=== PATIENT | male | born 1970 | race Caucasian/White ===

== ENCOUNTER 2016-07-25 11:47 | Emergency (ER) | payer OTHER ==
[~2016-07-25] VITALS: Ht 193 cm; Wt 136.1 kg
--- NOTE | ~2016-07-25 | EKG ---
[place] [address] [address] [facility] [place] [address] ELECTROCARDIOGRAM REPORT Name: LEELEE BAEZA [id number] Admission: 07/25/16 Attend Phys: Discharge: 07/25/16 Date of : 66 Report #: [id number] THIS REPORT FOR: //name// [facility] ED Test Date: 2016-07-25 Test Time: 12:04:48 Pat Name: LEELEE BAEZA Department: Room: 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
--- NOTE | ~2016-07-25 | EKG ---
[facility] [place] [address] ELECTROCARDIOGRAM REPORT Name: LEELEE BAEZA JR Room #: [facility].R.#: [id number] Admission: Attend Phys: Discharge: Date of : 66 Report #: [id number] THIS REPORT FOR: //name// [facility] ED Test Date: 2016-07-25 Test Time: 12:04:48 Pat Name: LEELEE BAEZA Department: Room: Gender: Cart Driver: Gricel GREGG : 1970 Requested By: Vincent Olmstead Order Number: [id number] MD: Measurements Intervals [place] Rate: 69 P: 24 ID: 233 QRS: 2 QRSD: 96 T: 45 QT: 387 QTc: 415 Interpretive Statements Sinus rhythm Prolonged ID interval ST elev, probable normal early repol pattern Baseline wander in lead(s) V2 No previous ECG available for comparison [email or web address] By: 1204 1204 Epiphany MD Donta /EPI
[2016-07-25 11:47] VITALS: BP 145/98
[~2016-07-25 11:47] MED LIST: BENICAR20 MG PO; IBUPROFEN 800800 MG PO; NORCO 5-325 TA1 EACH PO; ZOCOR20 MG PO
[2016-07-25] MEDS ORDERED: OLMESARTAN-HCT1 EAC2 PO (12:14)
[2016-07-25 12:18] LABS: HEMATOCRIT 50.3 % (42.0-52.0); HEMOGLOBIN 17.7 gm/dL (14.0-18.0); MCH 31.5 pg (26.0-34.0); MCHC 35.2 g/dL (28.0-37.0); MCV 89.6 fL (80.0-100.0); PLATELET COUNT 233 thou/uL (150-400); RBC 5.62 mil/uL (4.50-6.00); RDW 13.3 % (10.5-14.5); WBC 7.5 thou/uL (4.0-11.0)
[2016-07-25 12:19] LABS: MANUAL DIFF YES
[2016-07-25 12:28] LABS: ANION GAP 9 mmol/L (7-16); BUN 13 mg/dL (7-18); CALCIUM 9.3 mg/dL (8.5-10.1); CHLORIDE 103 mmol/L (98-107); CO2 27 mmol/L (21-32); CREATININE 1.1 mg/dL (0.7-1.3); GLUCOSE 99 mg/dL (74-106); POTASSIUM 4.2 mmol/L (3.5-5.1); SODIUM 139 mmol/L (136-145)
[2016-07-25 12:34] LABS: APTT 27.7 Seconds (24.5-32.8); PROTIME 10.2 Seconds (9.3-11.4)
[2016-07-25 12:39] LABS: ABSOLUTE NEUTROPHILS 4.6 thou/uL (1.4-8.2); PLATELET ESTIMATE NORMAL; TOTAL CELL COUNT 100
[2016-07-25 12:47] LABS: ALBUMIN 3.5 g/dL (3.4-5.0); ALKALINE PHOSPHATASE 44 U/L (46-116); MAGNESIUM 2.1 mg/dL (1.8-2.4); NT-PRO BRAIN NAT PEPTIDE 6 pg/mL (<300); SGOT 31 U/L (15-37); SGPT 46 U/L (30-65); TOTAL BILIRUBIN 0.4 mg/dL (<0.1-1.0); TOTAL PROTEIN 7.5 g/dL (6.4-8.2); TROPONIN-I < 0.04 ng/mL (<0.04-0.07)
[2016-07-25] MEDS ORDERED: NITROGLYCERIN0.4 MG SUBLING (14:00)
[2016-07-25 15:04] VITALS: BP 138/76
== END 2016-07-25 15:06 | disposition home or self-care (01) ==
LOC: ER 11:47 → EROBS 13:08 → ER 15:06
PROVIDERS: Emergency Medicine
DX: R07.1 Chest pain on breathing (principal); E78.5 Hyperlipidemia, unspecified; I10 Essential (primary) hypertension; Z88.1 Allergy status to other antibiotic agents; F10.99 Alcohol use, unspecified with unspecified alcohol-induced disorder

== ENCOUNTER 2017-07-16 14:59 | Inpatient (IN) | payer OTHER ==
[~2017-07-16] VITALS: Ht 193 cm; Wt 146.7 kg
--- NOTE | ~2017-07-16 | EKG ---
[place] [address] [facility] [place] [address] ELECTROCARDIOGRAM REPORT Name: LEELEE BAEZA Shelly URBANO Room #: 170-1 ADM IN M.R.#: [id number] Admission: 07/16/17 Attend Phys: Aleksandar Gomez MD Discharge: Date of : 66 Report #: [id number] THIS REPORT FOR: //name// [facility] ED Test Date: 2017-07-16 Test Time: 14:59:57 Pat Name: LEELEE BAEZA Department: Room: Gender: M Chair Maker: VITA : 1970 Requested By: Vincent Olmstead Order Number: [id number] MD: Jones Todd Measurements Intervals [place] Rate: 120 P: 19 DE: 171 QRS: 1 QRSD: 84 T: 57 QT: 308 QTc: 436 Interpretive Statements Sinus tachycardia Poor R-wave progression Compared to ECG 07/25/2016 12:04:48 Heart rate has increased Poor R wave progression is now present Electronically Signed On 07-16-2017 17:13:57 CDT by Jones Todd [email or web address] <ELECTRONICALLY SIGNED> By: Jones Todd MD, [facility] 07/16/17 1713 1459 1459 Jones Todd MD, [facility] /EPI
--- NOTE | ~2017-07-16 | CATHLAB ---
[facility] [place] [address] INVASIVE PROCEDURE REPORT Name: LEELEE BAEZA JR Room #: 219-P ADM IN ..#: [id number] Admission: 07/16/17 Attend Phys: Aleksandar Gomez, Discharge: Date of : 66 Date of Service: 07/17/17 1512 Report #: [id number] THIS REPORT FOR: //name// APPROVED REPORT Study performed: 07/17/2017 07:57:32 Patient Details Patient Status: In-Patient Room #: The patient is a 46 year-old male Event Personnel Rigoberto Riggs Home Care Specialist, Miguel Flores Mahmood, Amber Monitor, Valente Jara RN encoding machine operator Performed Left Heart Cath w/or w/o Coronaries [id number] [facility] Indication Dyspnea, Unstable angina Risk Factors Obesity, Family History, Hypercholesterolemia, Hypertension Procedure Narrative The Right Groin^ was infiltrated with 1% Lidocaine subcutaneous anesthesia. A PINNACLE 5FR Sheath #[id number] sheath was inserted into the RFA^. Coronary angiography was performed using coronary diagnostic catheters. The right coronary system was accessed and visualized with a JR4 catheter. The left coronary system was accessed and visualized with a JL4 catheter. The left ventricle was accessed and visualized with a PIGTAIL catheter. Left ventricular/Aortic Valve gradient assessed via catheter pullback. Closure device was deployed with a 5 Fr MYNXGRIP 5F #[id number]. The patient tolerated the procedure well and there were no complications associated with the procedure. There was no hematoma. Intraoperative Conscious Sedation Sedation start time: 8.27 Case end Time: 8.45 Fentanyl 50 mcg Versed 1 mg Fluoro Time: 4.01 minutes Dose: DAP 8109.00 cGycm2 887 mGy [facility] [address] [place] [address] INVASIVE PROCEDURE REPORT Name: LEELEE BAEZA Room #: 219-P [facility] IN .R.#: [id number] Admission: 07/16/17 Attend Phys: Aleksandar Gomez, Discharge: Date of : 66 Date of Service: 07/17/17 1512 Report #: [id number] Contrast Type and Amount: Visipaque 50 ml Coronary Angiography The patient's coronary anatomy is right dominant. Diagnostic Cath Left Main patent vessel, with no flow-limiting lesions.. LAD Moderate size caliber vessel, traveling down the anterior wall and wrapping around the apex. Patent with no flow-limiting lesions. Diagonal 1 Patent, with no flow-limiting lesions. Circumflex Patent vessel, with mild disease in the proximal segment, less than 20%. OM1 Patent vessel, with no flow-limiting lesions. OM2 Patent vessel, with no flow-limiting lesions. Right Coronary Dominant vessel with mild disease in the mid segment, 20%. R PDA Patent vessel, with no flow-limiting lesions. RPLV Patent vessel, with no flow-limiting lesions. Left Ventriculography Left Ventriculography was not performed. An LVEDP was measured and there is no gradient across the outflow tract. Hemodynamics The aortic pressure is 169/87 mmHg with a mean of 99 mmHg. The left ventricular pressure is 147/21 mmHg with a mean of mmHg. The left ventricular end diastolic pressure is 28 mmHg. There was no gradient across the aortic valve upon pullback. Pullback from the left ventricle to the aorta revealed no gradient across the aortic valve. Conclusion 1. 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 2. Recommend risk factor management. <ELECTRONICALLY SIGNED> By: Rigoberto Riggs MD 07/17/17 151 11 11 Rigoberto Riggs MD /INF
--- NOTE | ~2017-07-16 | HC ---
[facility] [place] [address] CONSULTATION Name: LEELEE BAEZA Room #: 219-P [facility] IN ..#: [id number] Admission: 07/16/17 Attend Phys: Aleksandar Gomez MD Discharge: Date of : 66 Report #: [id number] THIS REPORT FOR: //name// CC: Aleksandar Gomez DATE OF SERVICE: 07/16/2017 INDICATIONS: Chest pain. HISTORY OF PRESENT ILLNESS: This is a 46-year-old gentleman with a history of hypertension, hypercholesterolemia, family history for premature CAD, presenting with chest pains. 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 He developed a discomfort on the left side of his chest, nonradiating. He felt diaphoretic, weakness and dyspneic. It was a severe pain that did not resolve right away. EMS was called and he was taken to the ER for evaluation. He is pain free at this time. There is no history of fever, chills, nausea, PND or orthopnea. PAST MEDICAL HISTORY: He had a stress echo in 2017 that was nonischemic. He has a history of hypertension, hypercholesterolemia, GERD. Strong family history for premature CAD, father with an CO at age 36 and sister with an CO in her 50s. ALLERGIES: INCLUDE KEFLEX. MEDICATIONS: At home include Toprol 50 mg daily, Benicar HCT 40/25 mg daily, Zocor 20 mg daily. SOCIAL HISTORY: Negative for tobacco use. FAMILY HISTORY: Positive for CAD. REVIEW OF SYSTEMS: A full 10-point review of systems performed. Only the pertinent positives and negatives are described in the HPI. PHYSICAL EXAMINATION: VITAL SIGNS: Blood pressure is 130/70, heart rate is 120 beats per minute. GENERAL APPEARANCE: An overweight male, in no acute respiratory distress. HEAD AND EYES: Normocephalic. Sclerae are anicteric. ENT: Oral mucosa moist. NECK: Supple. LUNGS: Clear to auscultation. CARDIAC: Regular rate and rhythm. S1, S2 positive. ABDOMEN: Soft, protuberant, nontender. EXTREMITIES: No cyanosis, no edema. NEUROLOGIC: Alert and oriented x 3 [facility] [address] [place] [address] CONSULTATION Name: LEELEE BAEZA Shelly Room #: 219-P ADM IN .R.#: [id number] Admission: 07/16/17 Attend Phys: Aleksandar Gomez MD Discharge: Date of : 66 Report #: [id number] ECG reveals sinus tachycardia, nonspecific finding. LABORATORY VALUES: White count is 9.5, hemoglobin 16.6. Sodium is 142, creatinine is 1.8. Troponin is negative. IMPRESSION AND PLAN: 1. Acute coronary syndrome. The patient with significant risk factors, presenting with unstable angina. I discussed with the patient and his , the risks and benefits of a cardiac catheterization. All questions were answered and he wishes to proceed. We will start aspirin and heparin protocol. 2. Hypertension. Continue with medications, increase the beta-mick dose. 3. Hypercholesterolemia, continue with statin therapy. 4. Gastroesophageal reflux disease, start proton pump inhibitor. <ELECTRONICALLY SIGNED> By: Rigoberto Riggs MD 07/17/17 0812 1653 2346 Rigoberto Riggs MD /nt
[~2017-07-16 14:59] MED LIST changes: +NITROGLYCERIN0.4 MG SUBLING; +OLMESARTAN-HCT1 EAC2 PO
[2017-07-16 15:00] VITALS: BP 135/74
[2017-07-16 15:43] LABS: ABSOLUTE NEUTROPHILS 7.8 thou/uL (1.4-8.2); BASOPHILS 0.3 % (0.0-2.0); HEMATOCRIT 48.6 % (42.0-52.0); HEMOGLOBIN 16.6 gm/dL (14.0-18.0); LYMPHOCYTES 11.6 % (24.0-44.0); MCH 30.7 pg (26.0-34.0); MCHC 34.3 g/dL (28.0-37.0); MCV 89.5 fL (80.0-100.0); PLATELET COUNT 286 thou/uL (150-400); POLYS 82.1 % (36.0-66.0); RBC 5.43 mil/uL (4.50-6.00); WBC 9.5 thou/uL (4.0-11.0)
[2017-07-16 15:47] LABS: ANION GAP 14 mmol/L (7-16); BUN 24 mg/dL (7-18); CHLORIDE 105 mmol/L (98-107); CO2 23 mmol/L (21-32); CREATININE 1.8 mg/dL (0.7-1.3); GLUCOSE 163 mg/dL (74-106); SODIUM 142 mmol/L (136-145)
[2017-07-16 15:55] LABS: ALBUMIN 4.1 g/dL (3.4-5.0); MAGNESIUM 2.2 mg/dL (1.8-2.4); SGOT 40 U/L (15-37); SGPT 72 U/L (30-65); TOTAL BILIRUBIN 0.5 mg/dL (<0.1-1.0); TOTAL PROTEIN 8.1 g/dL (6.4-8.2); TROPONIN-I < 0.04 ng/mL (<0.06)
[2017-07-16 16:08] LABS: PROTIME 10.1 Seconds (9.3-11.4)
[2017-07-16 16:47] VITALS: BP 120/98
[2017-07-16 18:10] VITALS: BP 147/100
[2017-07-16 18:12] VITALS: BP 148/78
[2017-07-16 19:45] VITALS: BP 100/81
[2017-07-17 00:11] VITALS: BP 140/85
[2017-07-17 04:32] VITALS: BP 134/84
[2017-07-17 06:19] LABS: CALCIUM 8.5 mg/dL (8.5-10.1); CREATININE 1.3 mg/dL (0.7-1.3); POTASSIUM 3.7 mmol/L (3.5-5.1)
[2017-07-17 12:23] VITALS: BP 134/84
== END 2017-07-17 16:18 | disposition home or self-care (01) | DRG 286 ==
LOC: ER 14:59 → 2N 16:15 → EROBS 16:15 → 2N 17:53 → ENTRNSPT 07-17 12:45 → EDTRNSPTSTS 07-17 12:47 → 2N 07-17 16:18
PROVIDERS: Emergency Medicine; Nurse Practitioner Gerontology
PROC: 4A023N7 Measurement of Cardiac Sampling and Pressure, Left Heart, Percutaneous Approach (ICD-10-PCS; principal; 2017-07-17)
PROC: B2151ZZ Fluoroscopy of Left Heart using Low Osmolar Contrast (ICD-10-PCS; principal; 2017-07-17)
PROC: B2111ZZ Fluoroscopy of Multiple Coronary Arteries using Low Osmolar Contrast (ICD-10-PCS; principal; 2017-07-17)
DX: R07.89 Other chest pain (principal); N17.0 Acute kidney failure with tubular necrosis; I25.110 Atherosclerotic heart disease of native coronary artery with unstable angina pectoris; I12.9 Hypertensive chronic kidney disease with stage 1 through stage 4 chronic kidney disease, or unspecified chronic kidney disease; N18.9 Chronic kidney disease, unspecified; E78.00 Pure hypercholesterolemia, unspecified; K21.9 Gastro-esophageal reflux disease without esophagitis; Z79.899 Other long term (current) drug therapy; Z88.8 Allergy status to other drugs, medicaments and biological substances; Z82.49 Family history of ischemic heart disease and other diseases of the circulatory system
CPT/HCPCS: 10081